=== PATIENT | female | born 1955 | race Caucasian/White ===

== ENCOUNTER 2022-04-29 08:59 | Outpatient (CLI) | payer MEDICARE, BC, SELFPAY ==
--- NOTE | 2022-04-29 09:15 | CRLHL7_ITS ---
For Patients: As a result of the Century Cures Act, medical imaging exams and procedure reports are released immediately into your electronic medical record. You may view this report before your referring provider. If you have questions, please contact your health care provider. Technique: Double-contrast esophagram performed after the uneventful administration of effervescent crystals and thick barium followed by thin barium. Fluoroscopy time 59 seconds. Indication: Dysphagia Comparison: None. Findings: Esophagus: Normal morphology. Slightly diminished motility. No stricture or mass. Gastroesophageal reflux: None. No hernia. Impression: Slightly diminished esophageal motility. No reflux or hernia. Dictated by Carlton Li MD @ 04/29/2022 11:20:18 AM (Electronically Signed)
== END 2022-04-29 09:00 | disposition home or self-care (01) ==
LOC: RAD 09:08
PROVIDERS: Visit Provider Internal Medicine Gastroenterology
DX: R13.19 Other dysphagia (principal); K22.9 Disease of esophagus, unspecified
CPT/HCPCS: 74221

== ENCOUNTER 2023-11-11 10:01 | Emergency (ER) | payer MEDICARE, BC, SELFPAY ==
[2023-11-11] VITALS (14 sets, daily range): BP systolic 110–113; BP diastolic 55–59; PULSE 58–81; RESP 18; TEMP 36–36.9; O2SAT 94–100; BMI 23.4
--- NOTE | 2023-11-11 10:29 | ED_ITS ---
HPI - Extremity Injury (Lower) General Time Seen by Provider: 10:29 Date Seen: 11/11/23 Chief Complaint: Extremity Pain/Injury, Lower Stated Complaint: passed out Time Seen by Provider: 11/11/23 10:27 Source: patient, EMS and RN notes reviewed Mode of arrival: EMS Limitations: no limitations History of Present Illness HPI Narrative: This 68-year-old female was brought in by EMS after her called for syncopal episode. Charo had a left total knee arthroplasty at [facility], stayed overnight 1 night. This surgery was on Tuesday of this week, today is Tuesday. She had had her right knee replaced 2 years ago, had an ice machine from that but it quit working overnight. They were trying the gel wraps, her went and got iced from the grocery store this morning. She notes that her leg is much more swollen than her other surgery. She was attempting to walk this morning, had taken OxyContin at 8:30 a.m. this morning. Was having significant pain in the knee, started feeling lightheaded. She had her assist her to the chair as she thought she might pass out. When she was sitting in the chair, he told her that she thought she was passing out, she slumped forward into him. She had a brief episode where she stiffened up and her head rolled back. Patient notes that he thought he lost her. She does not remember these details. She had another episode with EMS on scene where patient vomited and had another syncopal episode. They were with her for about 45 minutes, obviously decided to bring her in. Her blood pressure was 70s, she notes she was having severe pain in the knee throughout this time. The knee pain is better with 0.5 mg IV dilaudid from EMS. They also gave her 4 mg IV Zofran and a 250 mL fluid bolus. Her noted that with the for syncopal episode, her color changed in she looked terrible. She denies any chest pain or shortness of breath through this. MD complaint: other (Status post left total knee arthroplasty, syncope) Related Data Home Medications Medication Instructions Recorded Confirmed acetaminophen 11/11/23 amlodipine 5 mg tablet 5 mg PO DAILY 11/11/23 11/11/23 carvedilol 12.5 mg tablet mg PO 11/11/23 levothyroxine 112 mcg tablet 112 mcg PO DAILY 11/11/23 11/11/23 losartan 100 mg tablet 100 mg PO DAILY 11/11/23 11/11/23 oxycodone 5 mg tablet 2.5 - 5 mg PO Q6H PRN pain 11/11/23 11/11/23 rivaroxaban 20 mg tablet (Xarelto) 20 mg PO QPM 11/11/23 11/11/23 sennosides 8.6 mg-docusate sodium 1 - 2 tab PO BID 11/11/23 11/11/23 50 mg tablet (Senexon-S) Allergies Allergy/AdvReac Type Severity Reaction Status Date / Time simvastatin Allergy Intermediate Verified 11/11/23 10:23 chlorthalidone Allergy Mild Verified 11/11/23 10:23 enalapril Allergy Mild Verified 11/11/23 10:23 diazepam [From Valium] AdvReac Unknown Verified 04/29/22 10:03 ketorolac [From Toradol] AdvReac Unknown Verified 04/29/22 10:04 Review of Systems Status of ROS: Reports: 6 or more systems reviewed and unremarkable except as noted in History and below Exam Const: Vital Signs, click to edit/add: Vital Signs - 24 hr 11/11/23 10:08 11/11/23 11:03 11/11/23 11:46 Temperature 96.8 F L 98.5 F Pulse Rate [Pulse Oximeter] 58 L Respiratory Rate 18 Blood Pressure [Ri ght Upper Arm] 110/57 L Pulse Oximetry 100 98 Oxygen Delivery Me thod Room Air 68-year-old female is alert, interactive , no apparent distress. Sclera clear, conjugate gaze, do have a sense that she maybe is slightly pale. Able to speak in complete sentences. Lungs are clear, good air entry, no wheezing or crackles. CV regular rate and rhythm, no murmur, normal S1-S2, no S3-S4. Abdomen is soft, nontender, no masses noted. Her left lower extremity is significantly swollen, mild erythematous changes that seem to be consistent with postoperative changes. She can feel her foot when I touch. Foot is warm. Do not appreciate any definitive infection at this time clinically. Exam is nonfocal, see no definite neurologic deficits. Documenting provider has reviewed patient's vital signs: yes Course Course ED Course: This is a postoperative patient with increased swelling and pain in her left total knee replacement extremity. She did have syncope this morning. This could be vasovagal syncope will also consider thromboembolic disease. We will do a Doppler of her left lower extremity. Will have an EKG in full complement of labs obtain including a troponin. Will initiate some IV fluids. It is possible that pain as well as the Oxy Contin could have combined to this episode. Will watch her closely. She is currently hemodynamically stable here. Will have nursing staff get ice to this lower extremity. Patient is on Xarelto which would make this less likely to be thromboembolic disease. Will see where her hemoglobin is, it is possible she is anemic. Reevaluation(s) Time of Reevaluation #1: 13:16 Reevaluation #1: Did give patient some Tylenol and tramadol here for pain management subsequently. She is feeling tired but overall back to her postoperative baseline. We are going to get her left leg redressed, see how she feels getting up with a walker. Likely discharge to home. We have reviewed her negative workup. Ultrasound is negative for any blood clot. Do not think she needs any pulmonary imaging as she is on Xarelto. She was noting just increased swelling in her leg. We discussed ice packs in icing without an ice machine, how to go about this until her ice machine is in on Tuesday. No evidence of any elevated troponins arrhythmia. She has not been hypoxic, labs are reassuring. We did review the mild postoperative anemia the hemoglobin in the 9 range, does not require transfusion. Did discuss having her eat iron rich foods to try to increase her iron for the time being. Vital Signs Vital signs: Initial Vital Signs Temperature 96.8 F L 11/11/23 10:08 Temperature Source Temporal Artery Scan 11/11/23 10:08 Pulse Rate 58 L 11/11/23 10:08 Respiratory Rate 18 11/11/23 10:08 Blood Pressure 110/57 L 11/11/23 10:08 Blood Pressure Mean 74 11/11/23 10:08 Blood Pressure Position Supine 11/11/23 10:08 Pulse Oximetry 100 11/11/23 10:08 Oxygen Delivery Method Room Air 11/11/23 10:08 Vital Signs Temperature 96.8 F L 11/11/23 10:08 Pulse Rate 58 L 11/11/23 10:08 Respiratory Rate 18 11/11/23 10:08 Blood Pressure 110/57 L 11/11/23 10:08 Pulse Oximetry 100 11/11/23 10:08 Oxygen Delivery Method Room Air 11/11/23 10:08 Temperature 98.5 F 11/11/23 11:46 Pulse Rate 58 L 11/11/23 10:08 Respiratory Rate 18 11/11/23 10:08 Blood Pressure 110/57 L 11/11/23 10:08 Pulse Oximetry 98 11/11/23 11:03 Oxygen Delivery Method Room Air 11/11/23 10:08 Medications Administered Medications: Discontinued Medications Generic Name Dose Route Start Last Admin Trade Name Nilson PRN Reason Stop Dose Admin Acetaminophen 1,000 mg 11/11/23 12:17 11/11/23 12:28 Acetaminophen 500 Mg Tablet PO 11/11/23 12:18 1,000 mg ONCE ONE Administration Lactated Ringer's 1,000 mls @ 500 mls/hr 11/11/23 10:45 11/11/23 11:10 Lactated Ringers 1000 Ml IV 11/11/23 12:44 500 mls/hr .Q2H EBEN Administration Tramadol HCl 50 mg 11/11/23 12:18 11/11/23 12:28 Tramadol Hcl 50 Mg Tablet PO 11/11/23 12:19 50 mg ONCE ONE Administration MDM - Extremity Injury (Lower) Lab Data Attestation: I reviewed the patient's lab results. Labs: Lab Results 11/11/23 11/11/23 11/11/23 Range/Units 10:38 10:53 12:30 WBC 8.28 (4.50-11.00) K/uL RBC 2.83 L (4.00-5.20) m/uL Hgb 9.3 L (12.0-16.0) gm/dL Hct 28.1 L (33.0-51.0) % MCV 99 (80-100) fL MCH 33 (26-34) pg MCHC 33 (32-36) gm/dL RDW Coeff of Tony 13.0 (11.5-15.5) % Plt Count 151 (140-440) K/uL Neut % (Auto) 74.2 H (42.0-72.0) % Lymph % (Auto) 10.3 L (20-44) % [place] % (Auto) 13.8 H (0.0-11.0) % Eos % (Auto) 1.0 (0.0-7.0) % Baso % (Auto) 0.5 (0.0-3.0) % Neut # (Auto) 6.10 (1.7-7.0) K/uL Lymph # (Auto) 0.90 (0.90-2.90) K/uL [place] # (Auto) 1.10 H (0.00-0.90) K/UL Eos # (Auto) 0.08 (0.00-0.50) K/uL Baso # (Auto) 0.04 (0.00-0.30) K/uL Abs Immat Gran (auto) 0.02 (0.00-0.30) K/uL Imm/Tot Granulo (auto) 0.2 % VBG pH 7.431 H (7.32-7.43) VBG pCO2 44 (40-50) mmHG VBG pO2 27.6 (25-47) mmHG VBG HCO3 30 H (21-28) mmol/L Sodium 134 L (135-149) mmol/L Potassium 4.1 (3.6-5.1) mmol/L Chloride 104 (96-114) mmol/L Carbon Dioxide 29 (20-32) mmol/L Anion Gap 1 L (7-15) mEq/L BUN 13 (7-30) mg/dL Creatinine 0.6 (0.5-1.5) mg/dL Estimated Creat Clear 49.70 Estimated GFR 97 ml/min Glucose 112 (60-115) mg/dL Lactate 1.2 (0.5-1.9) mmol/L Calcium 8.5 (8.4-10.6) mg/dL Total Bilirubin 0.8 (0.1-1.5) mg/dL AST 28 (12-35) U/L ALT 20 (4-35) U/L Alkaline Phosphatase 87 (40-150) U/L Total Protein 5.4 L (6.0-8.3) g/dL Albumin 3.2 L (3.3-5.0) g/dL POC Troponin I 0.00 L 0.00 L (0.01-0.04) ng/ml Imaging Data Venous US: Attestation: I have reviewed the pertinent imaging results. Radiologist's impression: Patient: CHARO GARCÍA Facility:?[facility] Patient ID:?[id number] Site Patient ID:?[id number]. Site :?[id number] Study:?US Extremity Left -11/11/2023 12:02:56 PM Ordering Physician:Alee Arizmendi Final Report: INDICATION: Leg pain and swelling. TECHNIQUE: Ultrasound venous duplex lower left extremity. Compression venous exam was performed using anand-scale, color Doppler, and spectral Doppler analysis. COMPARISON: None. FINDINGS: Deep veins: Sonographic imaging demonstrates the left common femoral, deep femoral, superficial femoral, popliteal, posterior tibial and the contralateral right common femoral veins to be fully compressible with normal color Doppler blood flow. Superficial veins: Greater saphenous vein is fully compressible. Complex fluid collection measured at the posterior medial aspect of the knee measuring 3.0 by 4.8 x 0.9 centimeters may reflect a tobias cyst or hematoma. A small 1.1 by 1.6 x 0.7 centimeter hypoechoic nodule posterior to the knee is entirely nonspecific and may reflect a small lymph node in the popliteal fossa. IMPRESSION: Negative for DVT. Dictated by Chris De León MD @ 11/11/2023 12:30:26 PM (Electronic Signature) ECG Data Attestation: I personally reviewed and interpreted this ECG as follows: (Normal sinus rhythm, 60 beats per minute. Some artifact in V4 V5. Otherwise no evidence of any ischemia or infarct. QT corrected 438 milliseconds.) ECG interpretation date: 11/11/23 ECG interpretation time: 10:50 Prior ECG tracings: not available for review Interpretation: Repeat EKG at 12:30 p.m. shows sinus rhythm, 74 beats per minute, no ischemia, QT corrected 444 milliseconds. Discharge Plan Discharge Clinical Impression: Pain due to total left knee replacement Qualifiers: Encounter type: initial encounter Qualified Code(s): T84.84XA - Pain due to internal orthopedic prosthetic devices, implants and grafts, initial encounter Syncope Qualifiers: Syncope type: vasovagal syncope Qualified Code(s): R55 - Syncope and collapse Patient Disposition: Home, Self-Care Condition: Stable Instructions: Syncope (ED), Total Knee Replacement (DC) Additional Instructions: Follow your post surgery care instructions from your orthopedist. Follow their pain management recommendations and continue on the Xarelto per their instructions. Ice with ice packs until you get your ice machine back. Make sure that you have adequate fluids and food in your system to help counter affect any side effects like lightheadedness, dizziness, drop in blood pressure from the oxycodone. If you are having pain issues, increasing swelling issues in this extremity, do need to contact your orthopedist in be evaluated by them. We will discharge to home at this time but if you have further concerns or issues, please seek re-evaluation. Prescriptions: No Action acetaminophen carvedilol 12.5 mg tablet PO sennosides-docusate sodium [Senexon-S] 8.6-50 mg tablet 1 - 2 tab PO BID amlodipine 5 mg tablet 5 mg PO DAILY losartan 100 mg tablet 100 mg PO DAILY levothyroxine 112 mcg tablet 112 mcg PO DAILY oxycodone 5 mg tablet 2.5 - 5 mg PO Q6H PRN (Reason: pain) Xarelto 20 mg tablet 20 mg PO QPM Follow Up/Referrals: Provider,Not a Local [Referring] - Stand Alone Forms: [employer] Info Instructions
--- NOTE | 2023-11-11 10:37 | CRLHL7_ITS ---
For Patients: As a result of the Century Cures Act, medical imaging exams and procedure reports are released immediately into your electronic medical record. You may view this report before your referring provider. If you have questions, please contact your health care provider. INDICATION: Leg pain and swelling. TECHNIQUE: Ultrasound venous duplex lower left extremity. Compression venous exam was performed using anand-scale, color Doppler, and spectral Doppler analysis. COMPARISON: None. FINDINGS: Deep veins: Sonographic imaging demonstrates the left common femoral, deep femoral, superficial femoral, popliteal, posterior tibial and the contralateral right common femoral veins to be fully compressible with normal color Doppler blood flow. Superficial veins: Greater saphenous vein is fully compressible. Complex fluid collection measured at the posterior medial aspect of the knee measuring 3.0 by 4.8 x 0.9 centimeters may reflect a tobias cyst or hematoma. A small 1.1 by 1.6 x 0.7 centimeter hypoechoic nodule posterior to the knee is entirely nonspecific and may reflect a small lymph node in the popliteal fossa. IMPRESSION: Negative for DVT. Dictated by Chris De León MD @ 11/11/2023 12:30:26 PM (Electronically Signed)
[2023-11-11 11:00] LABS: Basophils Absolute Auto 0.04 K/uL (0.00-0.30); Basophils Percent Auto 0.5 % (0.0-3.0); Eosinophils Absolute Auto 0.08 K/uL (0.00-0.50); Hematocrit 28.1 % (33.0-51.0); Hemoglobin* 9.3 gm/dL (12.0-16.0); Immature Granulocytes Abs Auto 0.02 K/uL (0.00-0.30); Immature Granulocytes Pct Auto 0.2 %; Lymphocytes Percent Auto 10.3 % (20-44); Mean Corpuscular HGB Conc 33 gm/dL (32-36); Mean Corpuscular Hemoglobin 33 pg (26-34); Mean Corpuscular Volume 99 fL (80-100); Monocytes Percent Auto 13.8 % (0.0-11.0); Neutrophils Percent Auto 74.2 % (42.0-72.0); Platelet Count* 151 K/uL (140-440); Red Blood Count 2.83 m/uL (4.00-5.20); White Blood Count* 8.28 K/uL (4.50-11.00)
[2023-11-11 11:01] LABS: HCO3 VBG 30 mmol/L (21-28); Lactate* 1.2 mmol/L (0.5-1.9); PCO2 VBG 44 mmHG (40-50); PO2 VBG 27.6 mmHG (25-47); pH VBG 7.431 (7.32-7.43)
[2023-11-11 11:02] LABS: Slide Review Reflex No
[2023-11-11] MEDS: LACTATED RINGERS 1000 ML 1,000 ML 500 ML IV (11:10)
[2023-11-11 11:18] LABS: Albumin* 3.2 g/dL (3.3-5.0); Chloride* 104 mmol/L (96-114); Potassium* 4.1 mmol/L (3.6-5.1); Sodium* 134 mmol/L (135-149)
[2023-11-11 11:21] LABS: Alanine Aminotransferase* 20 U/L (4-35); Alkaline Phosphatase* 87 U/L (40-150); Anion Gap 1 mEq/L (7-15); Aspartate Amino Transferase* 28 U/L (12-35); Bilirubin Total* 0.8 mg/dL (0.1-1.5); Blood Urea Nitrogen* 13 mg/dL (7-30); Carbon Dioxide* 29 mmol/L (20-32); Creatinine* 0.6 mg/dL (0.5-1.5); Estimated Glomerular Filt Rate 97 ml/min; Glucose* 112 mg/dL (60-115); Total Protein* 5.4 g/dL (6.0-8.3)
[2023-11-11 11:22] LABS: Calcium* 8.5 mg/dL (8.4-10.6)
[2023-11-11] MEDS: ACETAMINOPHEN 500 MG TABLET 1000 MG PO (12:28)
[2023-11-11] MEDS: TRAMADOL HCL 50 MG TABLET PO (12:28)
--- NOTE | 2023-11-11 13:10 | ED.NURSE ---
Pt ambulated to the bathroom with walker, minimal pain reported. New dressing applied to leg
== END 2023-11-11 13:35 | disposition home or self-care (01) ==
PROVIDERS: Emergency Provider Family Medicine; PCP Family Medicine
DX: R55 Syncope and collapse (principal); M79.605 Pain in left leg; T84.84XA Pain due to internal orthopedic prosthetic devices, implants and grafts, initial encounter
CPT/HCPCS: 36415; 80053; 82803; 83605; 84484; 85025; 93005; 93971; 94761; 96360; 96361; 99284; 99285; A9270; J7120